=== PATIENT | male | born 1985 | race Two or more races ===

== ENCOUNTER 2024-12-02 15:47 | Emergency (ER) | payer MEDICAID, SELFPAY ==
--- NOTE | 2024-12-02 16:04 | PD.EDPSYCH ---
ED Psych RME/HPI General Chief Complaint: Psychiatric Symptoms Stated Complaint: MENTAL EVAL Time Seen by Provider: 12/02/24 15:59 Arrival date/time: 12/02/24 15:47 This is a 39-year-old male that comes into the emergency room brought in by ambulance from [facility]. Patient was actually being discharged of [facility] prior to arrival. Per EMS patient was threatening officers and telling them that he was going to kill them. Mental health went to go speak to patient in intake where patient threatened to kill officers who were getting him ready to be released. When mental health started speaking to patient he reported that he was an kodi and it was time for him to go back to [facility] per notes.. Per notes when asked how he would get there he stated however I need to and also said do not worry sweetheart . Patient was deemed a danger to self and to others. Related Data Previous Rx's ?Medication ?Instructions ?Recorded acetaminophen 500 mg capsule 1,000 mg (2 x 500 mg) PO TID #30 11/29/22 caps acetaminophen 650 mg 650 mg PO Q12H PRN fever or pain 08/16/23 tablet,extended release #30 tabs naproxen 500 mg tablet 500 mg PO BID PRN pain #30 tabs 08/16/23 diphenhydramine HCl 25 mg capsule 25 mg PO Q8H PRN allergic symptoms 09/07/23 (Benadryl) #30 caps Allergies Allergy/AdvReac Type Severity Reaction Status Date / Time No Known Allergies Allergy Verified 09/07/23 14:24 Review of Systems Review of Systems Systems Reviewed: All systems reviewed, normal except as documented Past Medical History Past Medical History NEUROLOGIC: Negative Neurological Disorders CARDIAC: Negative Cardiac Disorders ED Exam Narrative Physical exam: VITAL SIGNS: Reviewed. GENERAL APPEARANCE: Alert and interactive, follows commands, no acute distress HEAD AND FACE: Non-traumatic. ENT: PERRL, conjuctiva pink and clear, eyelid no trauma, Mucous membrane moist. NECK: Supple, nontender, no nuchal rigidity. CHEST: No tenderness, no crepitus, no paradoxical movement, no retractions. LUNGS: breathing even and unlabored HEART: Regular rate, cap refill less than 2 seconds ABDOMEN: Soft, nondistended, no guarding, nontender NEUROLOGICAL: Gross motor function intact sensory function intact, Appropriate for age. MUSCULOSKELETAL: low back nontender, full range of motion. EXTREMITIES: No redness no swelling no skin breakdown on bilateral foot and leg. Distal neurovascular status intact bilateral foot SKIN: Color pink, dry, no rash Course Quality Measures none Orders Category Date Time Status Referral Psych Eval Stat Cons 12/02/24 22:24 Active Diet Regular Diet 12/03/24 Breakfast Active Acetaminophen Stat Lab 12/02/24 22:34 Completed Alcohol, Urine Stat Lab 12/02/24 19:11 Completed Bilirubin,Direct Stat Lab 12/02/24 22:34 Completed CBC Stat Lab 12/02/24 22:34 Completed CMP [Comprehensive Metabolic Panel] Stat Lab 12/02/24 22:34 Completed Drug Screen,Urine Stat Lab 12/02/24 19:11 Completed Magnesium Stat Lab 12/02/24 22:34 Completed Salicylate Stat Lab 12/02/24 22:34 Completed TSH [Thyroid Stimulating Hormone] Stat Lab 12/02/24 22:34 Completed Vital Signs Vital signs: Vital Signs Temperature 97.8 F 12/02/24 16:24 Pulse Rate 69 12/02/24 16:24 Respiratory Rate 18 12/02/24 16:24 Blood Pressure 145/89 H 12/02/24 16:24 Pulse Oximetry (%) 95 12/02/24 16:24 Oxygen Delivery Method Room Air 12/02/24 16:24 Psych MDM Narrative MDM Narrative:: Since arrival patient's been cooperative. Patient was initially on 4 point restraints by ambulance. Upon arrival to his room we were able to get him out of his 4 point restraints and patient was cooperative with no issues. Patient eating and drinking with no issues. Urine drug screen showed positive for meth and for marijuana. Alcohol was negative. Patient does come from [facility]. Patient denies SI HI. Patient was placed on a hold prior to arrival. Currently we are not able to clear him at this time until the morning. Patient will stay overnight. Patient is otherwise medically clear. Report given To who will assume patient care at 2300 12/02/24 Patient data External records reviewed:: [facility] previous records Clinical information provided by:: patient Social determinants that could affect healthcare access:: none Patient has the following chronic illnesses:: see hpi How is presenting disease/condition affected by chronic disease/condition?: no chronic disease Evaluation data The following diagnostics were reviewed and interpreted by me:: lab results Lab and/or radiology exams considered but not ordered:: see note Interpretation Summary: see note Medications / Prescriptions Medications or Prescriptions considered but not ordered:: none Medication administrations:: see note Consultations Consultation(s) initiated? (list below): No Diagnosis Psych Differential Diagnosis: acute psychosis, chronic schizophrenia, suicidal ideation, bipolar disorder, depression, drug-induced psychotic disorder and acute anxiety Most likely diagnosis given after review of the tests above:: meth use Admission Indicated Admission indicated?: not indicated Admission Request Was there a request for admission?: No Disposition Plan Disposition Plan: Discharge Discharge Attestation Discharge Attestation: The patient and all family members were given an opportunity to ask questions and understood the discharge instructions. Discharge instructions specifically effects, indications for sooner follow up or return to the emergency department, and the expected course of current diagnosis. Patient condition: Stable Discharge Plan Plan Patient Disposition: HOME (Self Care) Patient condition on transfer: Stable Prescriptions/Referrals Prescriptions/Med Rec: No Action acetaminophen 500 mg capsule 1,000 mg PO TID Qty: 30 0RF naproxen 500 mg tablet 500 mg PO BID PRN (Reason: pain) Qty: 30 0RF acetaminophen 650 mg tablet extended release 650 mg PO Q12H PRN (Reason: fever or pain) Qty: 30 0RF diphenhydramine HCl [Benadryl] 25 mg capsule 25 mg PO Q8H PRN (Reason: allergic symptoms) Qty: 30 0RF Referrals: No Primary/Family,Physician [Primary Care Provider] - In 1 week Problem List Clinical Impression: Encounter for medical clearance for patient hold, Methamphetamine use Patient/Caregiver Discharge Instructions Discharge Activity: activity as tolerated Education Materials: ED Drug Abuse Print Language: Serbian Stand Alone Forms: Janeen Award Info., Patient Portal Info Letter PA/WATER VALVE MECHANIC Supervising Physician PA/WATER VALVE MECHANIC Supervising Physician: chrissy
[2024-12-02 16:11] VITALS: BMI 36.5
[2024-12-02 16:24] VITALS: BP 145/89; PULSE 69; RESP 18; TEMP 36.6; O2SAT 95
--- NOTE | 2024-12-02 16:33 | PC.NURSE ---
PATIENT PLACED INTO ROOM AT 1615, PATIENT BROUGHT IN BY EMS [facility]150 HOLD FOR C/O THREATENING OFFICERS WHEN HE WAS GETTING DISCHARGED FROM [facility]. PATIENT DENIES SI OR HI. PATIENT CALM AND COOPERATIVE AT THIS TIME, PATIENT MADE AWARE OF PLAN OF CARE, SITTER AT BEDSIDE.
[2024-12-02 18:06] VITALS: BP 129/71; PULSE 94; RESP 16; TEMP 36.6; O2SAT 97
[2024-12-02 20:21] LABS: Alcohol, Urine Negative (Negative); Amphetamine/Methamp Scrn,U Positive (Negative); Barbiturate Screen,Urine Negative (Negative); Benzodiazepines Screen,Urine Negative (Negative); Benzoylecgonine Screen, Ur Negative (Negative); Fentanyl Screen,Urine Negative (Negative); Opiate Screen,Urine Negative (Negative); THC Screen,Urine Positive (Negative)
[2024-12-02 20:45] VITALS: BP 119/70; PULSE 77; RESP 18; TEMP 37.6; O2SAT 98
[2024-12-02 22:51] LABS: Basophils # (Auto) 0.0 Thou/mm3 (0.0-0.2); Basophils % (Auto) 0 % (0-2.5); Eosinophils # (Auto) 0.2 Thou/mm3 (0.0-0.5); Eosinophils % (Auto) 2 % (0-10); Hematocrit 35.2 % (41.0-53.0); Hemoglobin 11.7 g/dL (13.5-16.0); Immature Granulocytes Auto 0.02 Thou/mm3 (0.00-0.00); Lymphocytes # (Auto) 2.3 Thou/mm3 (1.0-4.8); Lymphocytes % (Auto) 23 % (10-50); Mean Corpuscular HGB Conc 33.2 g/dl (31.0-37.0); Mean Corpuscular Hemoglobin 31.3 pg (25.0-35.0); Mean Corpuscular Volume 94 fL (80-100); Monocytes # (Auto) 0.8 Thou/mm3 (0.0-0.8); Monocytes % (Auto) 8 % (0-12); Neutrophils # (Auto) 6.4 Thou/mm3 (1.8-7.7); Neutrophils % (Auto) 66 % (37-80); Nucleated Red Blood Cell # 0.00 Thou/mm3 (0.00-0.00); Nucleated Red Blood Cell % 0 /100 WBC (0); Platelet Count 261 Thou/mm3 (140-440); RDW Standard Deviation 45.0 fL (35.1-43.9); Red Blood Count 3.74 Miln/mm3 (4.50-5.90); White Blood Count 9.7 Thou/mm3 (3.8-10.6)
[2024-12-02 23:23] LABS: Acetaminophen < 2.0 mcg/mL (10.0-20.0); Alanine Aminotransferase 7 U/L (10-49); Albumin, Serum 3.8 gm/dL (3.5-5.0); Albumin/Globulin Ratio 1.8 (1.2-2.2); Alkaline Phosphatase 82 U/L (46-116); Anion Gap 9 (7-16); Aspartate Amino Transferase 16 U/L (0-34); BUN/Creatinine Ratio 16 Ratio (12-20); Bilirubin,Direct 0.2 mg/dL (0.0-0.3); Bilirubin,Total 0.6 mg/dL (0.3-1.2); Blood Urea Nitrogen 19 mg/dL (9-23); Calcium 9.4 mg/dL (8.3-10.6); Calcium (Corrected) 9.6 mg/dL (8.5-10.1); Carbon Dioxide 29.0 mMol/L (20.0-31.0); Chloride 107 mMol/L (98-107); Creatinine (Component) 1.2 mg/dL (0.6-1.3); Estimated Creatinine Clearance 96.9 mL/min (>60); Globulin 2.1 gm/dL (2.3-3.5); Glucose 101 mg/dL (74-106); Magnesium 1.8 mg/dL (1.6-2.6); Osmolality,Calculated 290 (275-295); Potassium 3.8 mMol/L (3.4-5.1); Salicylate < 3.0 mg/dL; Sodium 145 mMol/L (136-145); Thyroid Stimulating Hormone 1.59 uIU/mL (0.55-4.78); Total Protein 5.9 gm/dL (5.7-8.2); eGFR > 60 See Note
--- NOTE | 2024-12-03 03:15 | EDNOTE_ITS ---
Emergency Room Addendum Addendum Narrative: I took over the care from previous provider, Tatyana Pemberton, at _11 PM_ on _12/02/2024_.? See previous notes for complete H & P and ED course.?? I reviewed all diagnostic test results. Entered order for evaluation by our ED day care attendant. Patient is medically cleared. At 6 AM on 12/03/2024, the care of the patient was transferred to Dr. WILEY. Patient remained stable during my watch. Gautam Regalado MD
[2024-12-03 06:19] VITALS: BP 126/77; PULSE 62; RESP 18; TEMP 36.1; O2SAT 97
[2024-12-03 07:33] VITALS: BP 123/74; PULSE 72; RESP 16; TEMP 36.4; O2SAT 96
--- NOTE | 2024-12-03 09:00 | PC.NURSE ---
Handoff report received from Cristina NAJERA.
--- NOTE | 2024-12-03 10:20 | EDNOTE_ITS ---
Emergency Room Addendum Addendum Narrative: 0600: Care assumed from Dr. Regalado, the previous shift emergency physician. Past medical, surgical, social and family history reviewed. Vitals and home medications reviewed. I will assume the care of the patient at this time, pending mental health evaluation. Please refer to the emergency department record for history and examination from initial visit.?The following addendum documentation note is intended to reflect any pending information, findings, or radiology results not included in the patient?s initial chart. Notified by social services designee that she has rescinded the 5150 hold. Patient has been provided with outpatient resources. Patient was DC home in stable condition.
[2024-12-03 10:24] VITALS: BP 117/73; PULSE 78; RESP 18; TEMP 36.6; O2SAT 98
--- NOTE | 2024-12-03 10:25 | PC.CC ---
1000-Pt is a 39 yo male BIB [facility], as it was reported on the 5150 Hold for Danger to Self/Danger to Others. It was reported by EMMA Krishna, Director, that the pt was making threats to LE and made statements that he was an Jayy and needed to ge to [facility]. It was reported by Tomi that she asked how he was going to get to [facility] and pt reported any way I can. Therefore, pt was placed on a 5150 for DTS/DTO. ASW-Zayra Mcdermott met with patient [id number] to complete assessment. ASW introduced self, role, and reason for assessment. ASW disclosed limits of confidentiality as well. Patient appeared alert and oriented to self, place, and situation. Patient was pleasant; his mood appeared content without stress; his behavior appeared calm. Patient?s thought process was linear and organized. No signs of delusions, paranoid or AVH. Pt reported that he was in group home yesterday, about to get released, and the next thing he remembers is that he was being detained and brought to the hosptial. [facility] and upon arrival to [facility]. Pt reported he does not remember making statements of wanting to kill officers nor does he remember making statements suggesting that he wants to end his life. Pt denies h/o SI/HI, denies AVH and states he is present to time and place and knows where he is at. Pt reported, All I wanna do is leave and smoke a cigarette. Pt denies being dx with MH diagnosis. [place] he knows where to get help for senior living and drug and alcohol treatment. ASW and SCHOOL FUNDRAISING DIRECTOR Construction Project Administrator Cary Zaidi provided community resources to the pt such as [facility] and [employer] [facility] as well as to [facility]. Pt was receptive and cooperative. ER Provider states the pt has been calm and cooperative, no medications were given to the pt and he has been calm and cooperative with staff. ASW staffed with [facility], Director Lety Farley and it was determined that pt can be d/c on community resources that where provided to the pt. ASW attempted to contact Rocio Krishna for additional information regarding the pt, such as what was his plan and intent regarding the statement he made of wanting to Kill law enforcment. ASW attempted to call Rocio Krishna at [phone], amd at [phone]. ASW left messages on all four attempts but as of this writing, Tomi has not returned the call. ER provider is aware of the community resource plan and d/c. Assigned RN is also aware.
[2024-12-03 10:44] VITALS: BP 117/73; PULSE 78; RESP 18; TEMP 36.6; O2SAT 98
== END 2024-12-03 10:40 | disposition home or self-care (01) ==
PROVIDERS: Emergency Medicine; Nurse Practitioner Family; Emergency Provider Emergency Medicine
DX: Z04.6 Encounter for general psychiatric examination, requested by authority (principal); F15.90 Other stimulant use, unspecified, uncomplicated
CPT/HCPCS: 36415; 80053; 80307; 80320; 80329; 82248; 83735; 84443; 85025; 96127; 99283; G0480